=== PATIENT | female | born 1930 | race Caucasian/White ===

== ENCOUNTER 2016-10-18 21:18 | Emergency (ER) | payer OTHER ==
--- NOTE | 2016-10-18 22:19 | CT REPORT ---
HISTORY: Fall, patient on Coumadin COMPARISON: None. TECHNIQUE: Axial non-contrast images obtained from skull vertex through foramen magnum. Dose reduction technique was utilized. FINDINGS: There is mild global brain atrophy compatible with age. There is no hemorrhage. There is no hydroce phalus. There is a calcified meningioma arising from the anterior table of the right parietal bone m easuring 1.6 cm. Johnston white differentiation adequate, there is no infarction. No midline shift is i dentified. The paranasal sinuses are clear. IMPRESSION: 1. No acute intracranial abnormality. 2. Mild global brain atrophy compatible with age. 3. Calcified right parietal meningioma measuring 1.6 cm of doubtful clinical significance. Final Electronic Signature: This report was electronically signed by Adonay Quiroz MD on 10/18/2016 1 0:16 PM. [email or web address] /
[2016-10-18] MEDS ORDERED: DIPH,PERTUSS(ACELL),TET VAC/PF 0.5 ML VIAL IM ONE (22:27)
--- NOTE | 2016-10-18 22:29 | CT REPORT ---
HISTORY: Fall, facial injury COMPARISON: None. TECHNIQUE: This examination was performed using automated exposure control, adjustment of mA or kV according to patient size, and/or use of iterative reconstruction technique. Axial noncontrast images of the sinus es obtained with multiplanar reformat images. FINDINGS: The paranasal sinuses are clear, without mucosal thickening or air-fluid level. The osteomeatal unit s are intact bilaterally. The nasal septum is intact and nondeviated. The soft tissues of the orbit s and facial region are unremarkable. IMPRESSION: No acute facial bone fracture. Final Electronic Signature: This report was electronically signed by Adonay Quiroz MD on 10/18/2016 1 0:26 PM. [email or web address] /
--- NOTE | 2016-10-18 22:37 | ER PHYSICIAN DOCUMENTATION ---
Physician Documentation [facility] Name:Marce Zuleta Age:86 yrs Sex:Female :1930 Arrival Date:10/18/2016 Time:21:18 Bed4 Private MD:Physician, No ED Trace Farris Disposition: 10/18/16 22:16 Discharged to Home/Self Care. Impression: Head Injury, Hematoma, Hypoxia. - Condition is Good. - Discharge Instructions: HEAD INJURY, No Wake-Up (Adult), HEMATOMA, Agents, Anticoagulant - COUMADIN COAGULOPATHY. - Medical Reconciliation form form. - Follow up: Private Physician; When: 1 week; Reason: Continuance of care. - Problem is new. - Symptoms have improved. HPI: 10/18 22:07 This 86 yrs old Female presents to ER via Wheelchair with complaints of Fall sc Injury. 22:07 Details of fall: The patient fell from an upright position, while walking. Onset: The sc symptom(s)/episode began/occurred just prior to arrival. Associated injuries: The patient sustained injury to the head, face. Associated signs and symptoms: Pertinent negatives: blurred vision, confusion, headache, memory problems, Loss of consciousness: the patient experienced no loss of consciousness. Severity of symptoms: At their worst the symptoms were mild. [place], has O2 in [place] where [place]'re going tonight. Historical: - Allergies: No known drug Allergies; - Home Meds: 1. Coumadin Oral 2. Insulin: Novolin R Sub-Q 3. tramadol 50 mg oral tab 1 tab 4. amlodipine 5 mg oral tab 1 tab once daily 5. lovastatin 20 mg oral tab 1 tab once daily 6. mirtazapine 15 mg oral tab 1 tab once daily 7. losartan 100 mg oral tab 1 tab once daily 8. levothyroxine 75 mcg oral cap 1 cap once daily 9. metoprolol tartrate 50 mg oral tab 1 tab once daily 10. furosemide 20 mg oral tab once daily 11. Magnesium Oxide Oral 12. Calcium Gluconate Oral 13. night oxygen - PMHx: ATRIAL FIB; PACEMAKER; Hypertension; Diabetes - IDDM; HYPOTHYROIDISM; chronic neck pain; low oxygen; - PSHx: Hysterectomy; Cholecysectomy; MASTECTOMY, RIGHT; - Tetanus: unknown > 10 years. - Ebola Screening: : Patient negative for fever greater than or equal to 101.5 degrees Fahrenheit, and additional compatible Ebola Virus Disease symptoms. Patient denies exposure to infectious person. Patient denies travel to an Ebola-affected area in the 21 days before illness onset. No symptoms or risks identified at this time. . - Immunization history: Pneumococcal vaccine is up to date, Flu Vaccine < 1 year. - Social history: Smoking status: Patient states was never smoker of tobacco. Patient/guardian denies using alcohol, street drugs. ROS: 22:08 Constitutional: Negative for fever, chills, and weight loss. sc Eyes: Negative for injury, pain, redness, and discharge. ENT: Negative for injury, pain, and discharge. Neck: Negative for injury, pain, and swelling. Cardiovascular: Negative for chest pain, palpitations, and edema. Respiratory: Negative for shortness of breath, cough, wheezing, and pleuritic chest pain. Abdomen/GI: Negative for abdominal pain, nausea, vomiting, diarrhea, and constipation. Back: Negative for injury and pain. 22:08 Skin: Negative for injury, rash, and discoloration. sc 22:08 MS/extremity: Negative for acute changes, injury or acute deformity. 22:08 Neuro: Negative for altered mental status, loss of consciousness, numbness, seizure activity. Exam: Constitutional: This is a well developed, well nourished patient who is awake, alert, and in no acute distress. Eyes: Pupils equal round and reactive to light, extra-ocular motions intact. Lids and lashes normal. Conjunctiva and sclera are non-icteric and not injected. Cornea within normal limits. Periorbital areas with no swelling, redness, or edema. ENT: Nares patent. No nasal discharge, no septal abnormalities noted. Tympanic membranes are normal and external auditory canals are clear. Oropharynx with no redness, swelling, or masses, exudates, or evidence of obstruction, uvula midline. Mucous membranes moist. Neck: Trachea midline, no thyromegaly or masses palpated, and no cervical lymphadenopathy. Supple, full range of motion without nuchal rigidity, or vertebral point tenderness. No meningismus. Chest/axilla: Normal chest wall appearance and motion. Nontender with no deformity. No lesions are appreciated. Cardiovascular: Regular rate and rhythm with a normal S1 and S2. No gallops, murmurs, or rubs. Normal PMI, no JVD. No pulse deficits. Respiratory: Lungs have equal breath sounds bilaterally, clear to auscultation and percussion. No rales, rhonchi or wheezes noted. No increased work of breathing, no retractions or nasal flaring. Abdomen/GI: Soft, non-tender, with normal bowel sounds. No distension or tympany. No guarding or rebound. No evidence of tenderness throughout. 22:09 Back: No spinal tenderness. No costovertebral tenderness. Full range of motion. mn 22:09 Head/face: Noted is contusion, hematoma, that is mild, of the left eye. 22:09 Musculoskeletal/extremity: Extremities: all appear grossly normal, with no appreciated pain with palpation. 22:09 Neuro: Orientation: is normal, Mentation: is normal, Cranial nerves: CN II- XII are normal as tested. Vital Signs: 21:59 BP 161 / 77; Pulse 85; Resp 16; Temp 98.2; Pulse Ox 82% on R/A; Weight 57.61 kg; Height mk2 5 ft. 2 in. (157.48 cm); Pain 4/10; 22:35 BP 158 / 64; Pulse 74; Resp 15; Temp 98.1; Pulse Ox 92% on R/A; Pain 3/10; mk2 21:59 Body Mass Index 23.23 (57.61 kg, 157.48 cm) mk2 MDM: 21:32 Patient medically screened. mn 22:09 Differential diagnosis: closed head injury, contusion. Data reviewed: vital signs, mn nurses notes, lab test result(s), radiologic studies, CT scan, and as a result, I will continue to observe the patient. Counseling: I had a detailed discussion with the patient and/or guardian regarding: the historical points, exam findings, and any diagnostic results supporting the discharge/admit diagnosis, lab results, radiology results, the need for outpatient follow up. 10/18 22:15 Order name: INR W/ CAPI DRAW; Complete Time: 22:17 EDMS 10/18 22:17 Interpretation: Abnormal: anticoagulated, supratherapeutic. mn 10/18 22:20 Order name: CAT SCAN; HEAD W/O CON [id number]; Complete Time: 22:28 EDMS 10/18 22:28 Interpretation: Normal Except. 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 mk2 Exp: 07/09/2018. Lot #: [id number]. } Route: IM; Site: right deltoid; 22:21 Follow up: Response: No adverse reaction mk2 Signatures: Trace Regan MD MD sc Kruger, Meg, RN RN mk2
--- NOTE | 2016-10-18 22:37 | ER NURSING DOCUMENTATION ---
Nurse's Notes [facility] Name:Marce Zuleta Age:86 yrs Sex:Female :1930 Arrival Date:10/18/2016 Time:21:18 Bed4 Private MD:Physician, No Diagnosis:Head Injury;Hematoma;Hypoxia Presentation: 10/18 21:31 Presenting complaint: Patient states: Pt states she is visiting [place] and tripped and her mk2 face hit the cement. Pt denies LOC, neurological symptom, visual problems and vomiting. Pt is comfortable and answers questions appropriately during initial exam. Hematoma and abrasion to left zygomatic arch. Transition of care: Other dinner. Notified ED Physician of Dr. Regan notified. 21:31 Acuity: JEREMIAH 2 mk2 21:31 Method Of Arrival: Wheelchair mk2 22:08 Care prior to arrival: None. mk2 22:36 Mechanism of Injury: Fall. mk2 Triage Assessment: 21:43 General: Appears in no apparent distress, Behavior is cooperative, pleasant. Pain: mk2 Complains of pain in face. Neuro: Level of Consciousness is awake, alert, Oriented to person, place, time, event, Gait is steady, Speech is normal. Respiratory: Breath sounds are clear bilaterally. Derm: Abrasion and discoloration to the left zygomatic arch area. Redness to both knees. No open wounds on knees. 22:09 EENT: No deficits noted. Musculoskeletal: Pt denies cspine tenderness. Pt fell on knees mk2 and states "they are a little sore.". Historical: - Allergies: No known drug Allergies; - Home Meds: 1. Coumadin Oral 2. Insulin: Novolin R Sub-Q 3. tramadol 50 mg oral tab 1 tab 4. amlodipine 5 mg oral tab 1 tab once daily 5. lovastatin 20 mg oral tab 1 tab once daily 6. mirtazapine 15 mg oral tab 1 tab once daily 7. losartan 100 mg oral tab 1 tab once daily 8. levothyroxine 75 mcg oral cap 1 cap once daily 9. metoprolol tartrate 50 mg oral tab 1 tab once daily 10. furosemide 20 mg oral tab once daily 11. Magnesium Oxide Oral 12. Calcium Gluconate Oral 13. night oxygen - PMHx: ATRIAL FIB; PACEMAKER; Hypertension; Diabetes - IDDM; HYPOTHYROIDISM; chronic neck pain; low oxygen; - PSHx: Hysterectomy; Cholecysectomy; MASTECTOMY, RIGHT; - Tetanus: unknown > 10 years. - Ebola Screening: : Patient negative for fever greater than or equal to 101.5 degrees Fahrenheit, and additional compatible Ebola Virus Disease symptoms. Patient denies exposure to infectious person. Patient denies travel to an Ebola-affected area in the 21 days before illness onset. No symptoms or risks identified at this time. . - Immunization history: Pneumococcal vaccine is up to date, Flu Vaccine < 1 year. - Social history: Smoking status: Patient states was never smoker of tobacco. Patient/guardian denies using alcohol, street drugs. Screenin:00 Infectious Disease Risk None. Abuse screen: Denies threats or abuse. Nutritional mk2 screening: No deficits noted. 22:36 Tuberculosis screening: No symptoms or risk factors identified. mk2 Assessment: 21:59 See Triage Assessment done by same RN. mk2 Vital Signs: 21:59 BP 161 / 77; Pulse 85; Resp 16; Temp 98.2; Pulse Ox 82% on R/A; Weight 57.61 kg; Height mk2 5 ft. 2 in. (157.48 cm); Pain 4/10; 22:35 BP 158 / 64; Pulse 74; Resp 15; Temp 98.1; Pulse Ox 92% on R/A; Pain 3/10; mk2 21:59 Body Mass Index 23.23 (57.61 kg, 157.48 cm) mk2 ED Course: 21:19 Patient arrived in ED. ma1 21:19 Physician, No is Private Physician. ma1 21:29 So Frankel, RN is Primary Nurse. mk2 21:[address] mr 21:33 Triage completed. mk2 21:[address] Patient moved back from [address]. mr 21:55 Trace Regan MD is Attending Physician. sc 21:59 Arm band placed on Bed in low position Call Light in Reach Gowned HOB Elevated Side mk2 rails up x2. 22:03 Valuables Remains with patient. Pulse ox on. NIBP on. Ice pack to injury. Verbal mk2 reassurance given. Warm blanket given. 22:04 Oxygen Oxygen administration via nasal cannula @ 2L/min. 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 mk2 Exp: 07/09/2018. Lot #: [id number]. } Route: IM; Site: right deltoid; 22:21 Follow up: Response: No adverse reaction mk2 Outcome: 22:16 Discharge ordered by . sharif 22:35 Discharged to home ambulatory. mk2 22:35 Condition: good 22:35 Discharge Assessment: Patient awake, alert and oriented x 3. No cognitive and/or functional deficits noted. Patient verbalized understanding of disposition instructions. 22:35 Discharge instructions given to patient, Instructed on discharge instructions, follow up and referral plans. 22:36 Patient left the ED. 2 Signatures: Trace Regan MD MD sc Kruger, Meg RN RN mk2 Yamila Mahoney ma1 Masoud Salazar mr
== END 2016-10-18 22:37 | disposition home or self-care (01) ==
LOC: ER 21:18
DX: S00.12XA Contusion of left eyelid and periocular area, initial encounter (principal); W01.0XXA Fall on same level from slipping, tripping and stumbling without subsequent striking against object, initial encounter; Y92.89 Other specified places as the place of occurrence of the external cause; Y93.01 Activity, walking, marching and hiking; R09.02 Hypoxemia; Z23 Encounter for immunization; R79.1 Abnormal coagulation profile; I48.91 Unspecified atrial fibrillation; I10 Essential (primary) hypertension; E11.9 Type 2 diabetes mellitus without complications; Z79.01 Long term (current) use of anticoagulants; Z79.899 Other long term (current) drug therapy; Z95.0 Presence of cardiac pacemaker; Z79.4 Long term (current) use of insulin
CPT/HCPCS: 70450; 70486; 85610; 90471; 99284